=== PATIENT | male | born 1995 | race Hispanic/Latino ===

== ENCOUNTER 2016-06-12 23:04 | Emergency (ER) | payer OTHER ==
[~2016-06-12] VITALS: Ht 188 cm; Wt 74.2 kg
[~2016-06-12 23:04] MED LIST: AMOXICILLIN500 MG PO; AUGMENTIN875 MG OR; BACTRIM DS1 TAB PO; DILAUDID 2MG2 MG/TA1 PO; DOXYCYCL HYC100 M4 PO; KEFLEX500 M1 PO; LORTAB 10-325 M1 TAB PO; PROMETHAZINE HC25 MG PO; ROBITUSSIN AC10 ML PO; ULTRAM50 M1 PO; ZITHROMAX250 MG PO; ZPAK PO
--- NOTE | 2016-06-13 00:08 | NUR ---
BREATHING TREATMENT GIVEN. IT WAS EXPLAINT HOW TO BREATH DEEPLY FOR GOOD DEPOSITION TO THE LUNGS.
[2016-06-13] MEDS ORDERED: ZITHROMAX250 MG PO (01:13)
[2016-06-13] MEDS ORDERED: MEDDOSEPAK PO (01:13)
[2016-06-13] MEDS ORDERED: VENTOLIN HFA IN (01:13)
[2016-06-13] MEDS ORDERED: IBUPROFEN600 MG PO (01:13)
[2016-06-13 01:30] VITALS: BP 142/65
== END 2016-06-13 01:30 | disposition home or self-care (01) | DRG 605 ==
LOC: ED 23:04
DX: S60.221A Contusion of right hand, initial encounter (principal); F17.210 Nicotine dependence, cigarettes, uncomplicated; V09.09XA Pedestrian injured in nontraffic accident involving other motor vehicles, initial encounter; Y92.410 Unspecified street and highway as the place of occurrence of the external cause; J45.909 Unspecified asthma, uncomplicated; R05 Cough

== ENCOUNTER 2019-11-25 23:23 | Emergency (ER) | payer SELFPAY ==
[~2019-11-25] VITALS: Ht 188 cm; Wt 79.5 kg
[~2019-11-25 23:23] MED LIST changes: +IBUPROFEN600 MG PO; +MEDDOSEPAK PO; +MOTRIN800 MG PO; +TRAMADOL HCL50 MG PO; +VENTOLIN HFA IN
[2019-11-26 00:02] VITALS: BP 134/78
== END 2019-11-26 00:18 | disposition home or self-care (01) | DRG 159 ==
LOC: ED 23:23
DX: K01.1 Impacted teeth (principal); K04.7 Periapical abscess without sinus; F17.210 Nicotine dependence, cigarettes, uncomplicated

== ENCOUNTER 2020-02-24 06:01 | Emergency (ER) | payer SELFPAY ==
[~2020-02-24] VITALS: Ht 188 cm; Wt 81.8 kg
[2020-02-24 07:22] VITALS: BP 137/65
[2020-02-24] MEDS ORDERED: HYDROCO/APAP1 TA9 PO (07:35)
[2020-02-24] MEDS ORDERED: IBUPROFEN600 MG PO (07:35)
[2020-02-24] MEDS ORDERED: PENICILLN VK500 MG PO (07:35)
== END 2020-02-24 08:10 | disposition home or self-care (01) | DRG 158 ==
LOC: ED 06:01
DX: K04.7 Periapical abscess without sinus (principal); M84.48XA Pathological fracture, other site, initial encounter for fracture; K01.1 Impacted teeth; F17.210 Nicotine dependence, cigarettes, uncomplicated

== ENCOUNTER 2020-03-29 17:13 | Emergency (ER) | payer SELFPAY ==
[~2020-03-29] VITALS: Ht 188 cm; Wt 81.8 kg
[~2020-03-29 17:13] MED LIST changes: +HYDROCO/APAP1 TA9 PO; +PENICILLN VK500 MG PO
[2020-03-29] MEDS ORDERED: PENICILLN VK500 MG PO (18:02)
[2020-03-29 18:10] VITALS: BP 137/74
== END 2020-03-29 18:10 | disposition home or self-care (01) | DRG 159 ==
LOC: ED 17:13
DX: K04.7 Periapical abscess without sinus (principal); K02.9 Dental caries, unspecified; F17.210 Nicotine dependence, cigarettes, uncomplicated

== ENCOUNTER 2020-06-28 22:17 | Emergency (ER) | payer SELFPAY ==
[2020-06-28 22:20] VITALS: BP 132/72
[2020-06-28] MEDS ORDERED: PERCOCET 5/325M1 TAB PO (22:51)
[2020-06-28] MEDS ORDERED: AMOXICILLIN500 MG PO (22:51)
== END 2020-06-28 23:06 | disposition home or self-care (01) | DRG 159 ==
LOC: ED 22:17
DX: K01.1 Impacted teeth (principal); K02.9 Dental caries, unspecified; F17.200 Nicotine dependence, unspecified, uncomplicated

== ENCOUNTER 2020-07-06 19:06 | Emergency (ER) | payer SELFPAY ==
[~2020-07-06 19:06] MED LIST changes: +PERCOCET 5/325M1 TAB PO
[2020-07-06] MEDS ORDERED: MOTRIN400 MG/TAB PO (19:35)
[2020-07-06] MEDS ORDERED: LORTAB 7.57.5 MG PO (19:35)
[2020-07-06 19:50] VITALS: BP 128/68
== END 2020-07-06 19:50 | disposition home or self-care (01) | DRG 159 ==
LOC: ED 19:06
DX: K01.1 Impacted teeth (principal); F17.200 Nicotine dependence, unspecified, uncomplicated